=== PATIENT | female | born 1960 | race Caucasian/White ===

== ENCOUNTER 2016-11-11 13:18 | Outpatient (CLI) ==
[2016-06-29 19:08] VITALS: BMI 32.5
[2016-11-11 13:24] VITALS: BMI 32.5
--- NOTE | 2016-11-11 13:44 | DI ---
EXAM: Two-view chest HISTORY: Residual foreign body in the soft tissue. TECHNIQUE: Frontal and lateral views of the chest were obtained. Comparison to one-view chest dated 02/06/2014. FINDINGS: The heart is normal size. Lungs are clear. The pulmonary vasculature appears normal. T he osseous are normal. Small surgical clips are seen projected over the left breast. IMPRESSION: No active cardiopulmonary disease.
== END 2016-11-11 13:19 | disposition home or self-care (01) ==
LOC: RAD 13:18
PROVIDERS: ATTEND General Practice
DX: M79.5 Residual foreign body in soft tissue (principal)

== ENCOUNTER 2016-12-04 13:11 | Outpatient (CLI) | payer OTHER ==
[2016-06-29 19:08] VITALS: BMI 32.5
--- NOTE | 2016-12-04 16:52 | MRI ---
EXAM: Brain MRI without contrast. HISTORY: Dizziness and giddiness. 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 Patient has had a seizure and two mini strokes 3 years ago. COMPARISON: Head CT 02/06/2014. TECHNIQUE: Multiplanar, multisequence MR images were acquired of the brain without contrast. FINDINGS: The midline structures are central and the craniocervical junction is unremarkable. The ventricles and sulci are generally normal in size and configuration. However, the sulci in both occ ipital lobes are mildly effaced without signal abnormality. This probably represents normal variati on. There are no abnormal extra-axial fluid collections. Contrast was not administered. There are small 1 cm, 7 mm and 4 mm FLAIR hyperintensities in the cortex of the posterior superior right frontal lobe and anterior superior right parietal lobe. These have no corresponding T2 signal abnormalities and may represent artifact or small chronic cortical infarcts. There are also two fa int sub-centimeter FLAIR hyperintensities in the anterior superior left frontal cortex without abnor mal hyperintense T2 signal that may represent artifact or small chronic cortical infarcts (axial brendan ges #17,18). These findings are below the threshold resolution of this MRI. Small T2 hyperintensiti es are present in the supratentorial white matter and there is a rim of periventricular T2 hyperinte nsity compatible with mild to moderate supratentorial leukomalacia. There are no abnormal foci of d ark gradient echo signal. The corpus callosum is unremarkable. The sella is expanded and the pitui tary gland is small and flattened inferiorly compatible with a partial empty sella. A right ocular prosthesis is present. The left globe is unremarkable. Mild rightward nasal septal deviation is present with a small right nasal septal spur. There is mild adenoidal hypertrophy with small nasopharyngeal mucosal cysts. A small mucous retention cyst is present in the sphenoid sinus. There is under pneumatization of the mastoid air cells bilaterally, more so on the left and there is mucosal thickening in a mild number of the right mastoid air cells and a moderate number of the l eft with thickened sclerotic mastoid septa bilaterally. These findings are compatible with sequela of chronic bilateral mastoid disease. Flow voids are present in the major intracranial arteries and dural venous sinuses. IMPRESSION: 1. No intracranial hemorrhage or acute cerebral infarct. 2. Mild to moderate chronic ischemic small vessel disease. 3. Partial empty sella.
== END 2016-12-04 13:12 | disposition home or self-care (01) ==
LOC: RAD 13:11
PROVIDERS: ATTEND General Practice
DX: R42 Dizziness and giddiness (principal); R56.9 Unspecified convulsions

== ENCOUNTER 2016-12-05 13:34 | Outpatient (CLI) | payer OTHER ==
[2016-06-29 19:08] VITALS: BMI 32.5
== END 2016-12-05 13:35 | disposition home or self-care (01) ==
LOC: CAR 13:34
PROVIDERS: ATTEND General Practice
DX: R42 Dizziness and giddiness (principal)

== ENCOUNTER → 2016-12-16 | Outpatient (POV) ==
[2016-06-29 19:08] VITALS: BMI 32.5
--- NOTE | 2017-01-20 09:54 | CARDEVENT ---
SUMMARY OF EVENTS Date of Transmission Diary of Events 12/15/16 12:31 P.M. BASELINE RECORDING INTERPRETATIONS: 1. SINUS RHYTHM, RATE 90 BPM, VARIATION IN VOLTAGE, COULD BE ARTIFACTUAL MTDD
== END ==
LOC: OUTPT 00:01
PROVIDERS: ATTEND Otolaryngology
DX: R42 Dizziness and giddiness (principal)
CPT/HCPCS: 92557; 92567

== ENCOUNTER 2016-12-30 06:57 | Day surgery (SDC) ==
[2016-06-29 19:08] VITALS: BMI 32.5
[2016-12-30] MEDS ORDERED: DIPRIVAN 20 ML VIAL IVP ONE (08:35)
[2016-12-30 09:47] VITALS: BP 116/68; TEMP 98
--- NOTE | 2016-12-31 08:59 | OP ---
INDICATIONS FOR PROCEDURE: 56-year-old female presents for her first screening colonoscopy exam. She does have a family history of colon polyps. MEDICATIONS: SEE ANESTHESIA NOTES. PROCEDURE: SCREENING COLONOSCOPY, SNARE POLYPECTOMY. REPORT: The risks, benefits, alternatives and limitations were discussed in detail with the patient. Informed consent was obtained. After adequate sedation was achieved, a digital rectal exam revealed good tone, no masses. The colonoscope was introduced into the rectum and advanced under direct visual guidance to the cecum. The cecum was identified by the appendiceal orifice and IC valve. I then slowly withdrew the scope in a circumferential manner examining the mucosa quite carefully. I looked on the proximal and distal side of folds and flexures as best as possible. I was able to retroflex the scope in the right colon and left colon to increase visualization. The colonic mucosa is unremarkable all the way down to the distal transverse colon. There was a semi-raised 6 mm polyp that I removed by snare technique. There were multiple small mouth diverticula scattered throughout the sigmoid colon. In the distal sigmoid there was a diminutive 4 mm polyp that I destroyed using a snare. No other abnormalities were noted including on retroflex view of the anal canal. The prep was adequate. The withdrawal time was 7 minutes and 30 seconds. The patient tolerated the procedure well with stable vital signs and pulse oximetry throughout. IMPRESSION: 1. TWO (2) POLYPS REMOVED ABOVE 2. DIVERTICULOSIS RECOMMENDATIONS: 1. High fiber diet. 2. Office visit as needed. 3. Colonoscopy examination again in 5 years, sooner if signs or symptoms would indicate otherwise. CC: DR. CAROLA CORNELL
== END 2016-12-30 10:10 | disposition home or self-care (01) ==
LOC: SURG 06:57
PROVIDERS: ATTEND Internal Medicine Gastroenterology
DX: Z12.11 Encounter for screening for malignant neoplasm of colon (principal); D12.3 Benign neoplasm of transverse colon; K57.30 Diverticulosis of large intestine without perforation or abscess without bleeding; Z83.71 Family history of colonic polyps

== ENCOUNTER 2017-01-09 08:58 | Outpatient (CLI) | payer OTHER ==
[2016-06-29 19:08] VITALS: BMI 32.5
--- NOTE | 2017-01-09 09:41 | MAMMO ---
EXAM: Bilateral digital diagnostic mammogram History: Follow-up left breast cancer. Comparison: Bilateral mammogram 06/03/2016 Findings: MLO and CC views of bilateral breasts demonstrate scattered fibroglandular breast parench yma. Interval postsurgical changes of the left breast. Stable benign bilateral breast calcification s. No dominant masses and no suspicious microcalcifications. Impression: Postsurgical changes of the left breast. Recommend 12-month follow-up mammogram to doc ument stability. BIRADS 3
--- NOTE | 2017-01-09 09:51 | DI ---
EXAM: Three views of the left shoulder. History: Left shoulder pain. Comparison: Left shoulder radiograph 02/14/2014 Findings: No acute fracture or dislocation. Surgical clips seen within the left axilla. Calcified granulomas seen within the right lower lobe. Mild narrowing of the left AC joint similar to the pr ior study. The glenohumeral joint is intact. Impression: No acute osseous abnormality. Stable mild arthritis of the acromioclavicular joint.
== END 2017-01-09 08:59 | disposition home or self-care (01) ==
LOC: RAD 08:58
DX: M25.512 Pain in left shoulder (principal); Z85.3 Personal history of malignant neoplasm of breast

== ENCOUNTER 2017-01-26 13:00 | Outpatient (RCR) ==
[2016-06-29 19:08] VITALS: BMI 32.5
--- NOTE | 2017-01-15 15:56 | RS.OPPTEV2 ---
Date of Note: 01/15/17 Visit #: 1 Date of Evaluation: 01/15/17 Payer Source: Medicaid Date of Onset/Injury/Change in Status: 06/27/17 Surgery Performed?: Yes (Lumpectomy with lymph node removal as well.) Treatment Diagnosis: Left shoulder weakness and ROM limitation. History of Condition/Mechanism of Injury:: Patient reports she had breast Ca and had a lumpectomy June 27, 2016. She also had lymph nodes taken but pt thinks is was only a few. She states she has been having difficulty using the left arm since her surgery. She is working with it at home but it is slow progress. She had 22 radiation treatments that ended the last of August. She did not have to have chemotherapy. Prior Level of Function.....Patient was independent with: ADL's, Self Care, Work /Vocation, Caregiving, Ambulation/Mobility, Community Integration/Access Functional Limitations: Sleep, ADL's, Reaching, Pushing, Pulling, Lifting, Carrying, Community Access/Integration (opening doors) Treatment Side (optional): Left Medical History Medical History: Hypertension, CVA/TIA (two weeks ago), COPD, Arthritis, Emphysema, Cancer, Other Medical History Comments:: Seizures Surgical History: Other Surgical History Comments:: Left breast lumpectomy with node removal and retinoblastoma with right eye removed at 19 months old. Right facial reconstruction from retinoblastoma removal. Ongoing procedures as needed. Smoking Status: Current every day smoker Hx Home Medications: Clonidine, Amitriptyline, synthroid, morphine, clonazepam, Cyclobenzaprine, nystatin Pain Assessment - Pain Description Pain Location: Occasional pain in the shoulder with movement at end range Functional Outcome Measure UE Functional Index: 70 - G Codes & Severity Modifier G Codes & Modifier: Carrying, Moving & Handling. Eval - CI. Goal - CH Source of G Code score: UE Functional Index - Left Shoulder ROM Left Shoulder Flexion: 128 Left Shoulder Abduction: 90 Left Shoulder ROM Limitations: Soft Tissue Tightness, Pain Comments: Left pec tightness as well with minimal pain to stretching. - Left Shoulder Strength Left Shoulder Flexion: 3 Fair Left Shoulder Abduction: 3- Fair- Left Shoulder External Rotation: Not Tested Left Shoulder Internal Rotation: Not Tested Sensation - Sensation Left Lower Extremity: Impaired Interventions - Exercise/Activities/Manual Therapy Exercises/Activities: Patient received AAROM all planes of motion of the L shoulder in sitting x 2 sets of 10-15 reps. Left pec stretches also performed by PT passively. Following ex CP was applied X 10 min to the area. Manual Therapy: NA - Charges Total Direct Minutes: 35 Total Treatment Time: 60 Procedures billed for this date of service:: PT Eval (Mod) & exercise Assessment Assessment: Left shoulder adhesive capsullitis with decreased ROM and strength. Pain occurs at end ROM with stretching only. Left pec tightness also. Patient Education: Education of diagnosis, Body/Joint mechanics, Education of Plan of Care Rehab Potential: Good Short Term Goals Goal #1: Left shoulder flexion 160 degrees Goal to be met by: 01/30/17 Goal #2: Left shoulder abduction 145 degrees Goal to be met by: 01/30/17 Goal #3: Patient independent with basic HEP Goal to be met by: 01/30/17 Senior Game Designer Goals Goal #1: Patient independent in advanced HEP. Goal to be met by: 02/06/17 Goal #2: Patient able to perform self care and ADL's using left UE w/o difficulty. Goal to be met by: 02/06/17 Goal #3: Score on UE functional scale improved to 78/80. Goal to be met by: 02/06/17 Goal #4: LUE strength 4+ - 5/5 throughout. Goal to be met by: 02/06/17 Plan - Treatment to be Provided Procedures: Therapeutic Exercises, Therapeutic Activity, Manual Therapy, Patient Education Modalities: Cryotherapy - Treatment Plan Frequency: 3 X week Duration: 4 weeks ORDER # VISITS AND/OR THROUGH DATE: 02/13/2017 - Treatment Code (1) Decreased ROM of left shoulder Comments: M25.612 (2) Muscle weakness (generalized) Comments: M62.81
--- NOTE | 2017-01-20 13:59 | RS.CXNS ---
Date of scheduled appointment: 01/20/17 Type: Cancel Reason for Cancel/NS: No mentioned reason
--- NOTE | 2017-01-22 13:30 | RS.CXNS ---
Date of scheduled appointment: 01/22/17 Type: Cancel
--- NOTE | 2017-01-23 16:13 | RS.OPPTDN ---
Subjective Date of Note: 01/23/17 Visit #: 2 Date of Evaluation: 01/15/17 Payer Source: Medicaid Treatment Diagnosis: Left shoulder weakness and ROM limitation. Current Subjective/complaints:: Patient states that the ice seemed to make her arm worse. Reports that her arm is stiff and sore at the L axilla and side of her breast. She says she is trying to work her arm at home, but she has "babied " it for some time and it has been difficult for her. Pain Assessment - Pain Description Pain Location: Occasional pain in the shoulder with movement at end range Pain Description: constant Current Pain Intensity: 4/10 Interventions - Exercise/Activities/Manual Therapy Exercises/Activities: Patient received PROM/AAROM all directions of the L shoulder. She began manual isometrics for FLEX/EXT/IR/ER. AAROM for the elbow and manual isometrics for biceps/triceps. Sitting: shoulder retraction and shoulder shrugs. Total minutes of Exercise: 32 Manual Therapy: NA - Charges Total Direct Minutes: 32 Total Treatment Time: 32 Procedures billed for this date of service:: ex2 Assessment: Patient mariposa PROM to WFL for flexion and abd. ER/IR limited by pain. Patient denied needing cryotherapy following exercise. She was encouraged to continue stretching pectoralis at home and use ice over the weekend to help with pain and tightness. Patient Education: Education of diagnosis, Body/Joint mechanics, Home Exercise Program, Home Safety, Activity Modification, Education of Plan of Care Patient demonstrates compliance with HEP?: Yes (somewhat) Short Term Goals Goal #1: Left shoulder flexion 160 degrees Goal to be met by: 01/30/17 Progress towards Goal:: Progressing Goal #2: Left shoulder abduction 145 degrees Goal to be met by: 01/30/17 Progress towards Goal:: Progressing Goal #3: Patient independent with basic HEP Goal to be met by: 01/30/17 [facility] Goals Goal #1: Patient independent in advanced HEP. Goal to be met by: 02/06/17 Goal #2: Patient able to perform self care and ADL's using left UE w/o difficulty. Goal to be met by: 02/06/17 Goal #3: Score on UE functional scale improved to 78/80. Goal to be met by: 02/06/17 Goal #4: LUE strength 4+ - 5/5 throughout. Goal to be met by: 02/06/17 Plan PLAN OF CARE EXPIRES ON:: 02/13/17 ORDER # VISITS AND/OR THROUGH DATE: 02/13/2017 PLAN: Progress Exercises
--- NOTE | 2017-01-26 14:02 | RS.OPPTDN ---
Subjective Date of Note: 01/26/17 Visit #: 3 Date of Evaluation: 01/15/17 Payer Source: Medicaid Treatment Diagnosis: Left shoulder weakness and ROM limitation. Current Subjective/complaints:: Patient says she thinks she has more motion. She says that she is weaning down her morphine. She says she still hurts, but seems to be mariposa exercise better. Describes, "good-hurt." Pain Assessment - Pain Description Pain Location: Occasional pain in the shoulder with movement at end range Pain Description: constant Current Pain Intensity: 4/10 Interventions - Exercise/Activities/Manual Therapy Exercises/Activities: Patient received PROM/AAROM all directions of the L shoulder. She continued with manual isometrics for FLEX/EXT/IR/ER. AAROM for the elbow and manual isometrics for biceps/triceps. 1# wand for bilateral shoulder flexion 2x5 and press ups x 10. Sitting: shoulder retraction and shoulder shrugs. Added shoulder pulleys. Total minutes of Exercise: 38 Manual Therapy: NA - Charges Total Direct Minutes: 38 Total Treatment Time: 38 Procedures billed for this date of service:: ex3 Assessment: Patient mariposa increased exercise especially flexion. ABD more difficult and more limited than flexion, but is improving. Pain is less today following treatment. Patient Education: Education of diagnosis, Body/Joint mechanics, Home Exercise Program, Home Safety, Activity Modification, Education of Plan of Care Patient demonstrates compliance with HEP?: Yes Short Term Goals Goal #1: Left shoulder flexion 160 degrees Goal to be met by: 01/30/17 Progress towards Goal:: Progressing Goal #2: Left shoulder abduction 145 degrees Goal to be met by: 01/30/17 Progress towards Goal:: Progressing Goal #3: Patient independent with basic HEP Goal to be met by: 01/30/17 Progress towards Goal:: Progressing Pitch Flaker Goals Goal #1: Patient independent in advanced HEP. Goal to be met by: 02/06/17 Goal #2: Patient able to perform self care and ADL's using left UE w/o difficulty. Goal to be met by: 02/06/17 Goal #3: Score on UE functional scale improved to 78/80. Goal to be met by: 02/06/17 Goal #4: LUE strength 4+ - 5/5 throughout. Goal to be met by: 02/06/17 Plan PLAN OF CARE EXPIRES ON:: 02/13/17 ORDER # VISITS AND/OR THROUGH DATE: 02/13/2017 PLAN: Progress Exercises
--- NOTE | 2017-01-28 15:09 | RS.CXNS ---
Date of scheduled appointment: 01/28/17 Type: No Show
--- NOTE | 2017-01-30 13:49 | RS.CXNS ---
Date of scheduled appointment: 01/30/17 Type: No Show
--- NOTE | 2017-02-27 10:30 | RS.QUICKDC ---
Discharge from PT Date of Discharge: 02/27/17 Number of Visits: 3 Reason for Discharge: Patient attended 3 sessions including eval and no showed/ cancelled 4 sessions with LDOS being 01/26/17. Patient had felt she was gaining mobility to the L shoulder. She reported self weaning from morphine due to progress. L UE ROM passively was ~WFL and sore with end ranges. D/c due to lack of POC completion. For specific information, see daily notes. Gcodes: Carry D/c: CI. Carry Goal: CH. UE Functional Scale revealled score: 70 or 12% impairment
== END 2017-02-06 ==
PROVIDERS: ATTEND Internal Medicine Hematology & Oncology
DX: M25.512 Pain in left shoulder (principal)

== ENCOUNTER 2017-04-24 14:00 | Outpatient (CLI) | payer OTHER ==
--- NOTE | 2017-04-24 14:53 | US ---
EXAM: Right lower extremity venous Doppler HISTORY: Concern for DVT with right lower extremity pain and history of breast cancer on tamoxifen therapy. COMPARISON: None TECHNIQUE: Sonographic and Doppler evaluation of the right lower extremity vessels from the common femoral through the anterior tibial veins were obtained. Augmentation and compression techniques we re also performed. FINDINGS: There is spontaneous Doppler flow seen in the right lower extremity veins from the common femoral through the anterior tibial veins. There is normal compression and augmentation throughout the lower extremity veins. There is no visualized reflux. Sonographic appearance of the soft tiss ues are unremarkable. IMPRESSION: No right lower extremity thrombus
--- NOTE | 2017-04-24 14:55 | DI ---
EXAM: Radiographs, right tibia and fibula HISTORY: Right lower leg pain. COMPARISON: None available. TECHNIQUE: Two views. FINDINGS: Bone mineralization is decreased. There is no fracture or dislocation. Mild osteoarthri tis of the knee noted. No focal soft tissue abnormality is seen. IMPRESSION: No fracture or dislocation.
== END 2017-04-24 14:01 | disposition home or self-care (01) ==
LOC: RAD 14:00
PROVIDERS: ATTEND General Practice
DX: M79.661 Pain in right lower leg (principal)

== ENCOUNTER 2017-08-20 13:37 | Emergency (ER) | payer OTHER ==
[2017-08-20 14:18] VITALS: BP 136/85; TEMP 98; BMI 33.6
--- NOTE | 2017-08-20 14:22 | ED.PDOC ---
General ED Provider: Dr. DWAYNE WANG Chief Complaint: Knee Pain/Injury Stated Complaint: Fell on right knee 2 weeks ago. Knee still hurting. PCP out of town. Time Seen by Physician: 14:21 Mode of Arrival: Walk-In Information Source: Patient Exam Limitations: No limitations [facility] T[facility] Documentation Reviewed and Agree: Yes Trauma/Injury Complaint Exam - Trauma Complaint/Exam Location of Pain or Injury: Reports: RLE (right knee) Mechanism of Injury: Reports: Fall (slipped on water) Onset/Duration: 2 weeks Symptoms Are: Still present Timing of Treatment: Immediate Past Medical History - Past Medical History Endocrine: Reports: Unknown Cardiovascular: Reports: Unknown Respiratory: Reports: Unknown Hematological: Reports: Unknown Gastrointestinal: Reports: Unknown Genitourinary: Reports: Unknown Neuro/Psych: Reports: Unknown Musculoskeletal: Reports: Unknown Cancer: Reports: Unknown Last Menstrual Period: none - Surgical History General Surgical History: Reports: Unknown - Family History Family History: Reports: Unknown - Social History Smoking Status: Current every day smoker, Light tobacco smoker Hx Substance Use: No Alcohol Screening: None Course - Course Vital Signs: Temp Pulse Resp BP Pulse Ox 08/20/17 13:38 98.0 F 109 H 18 136/85 96 Departure - Departure Allergies/Adverse Reactions: Allergies codeine Adverse Reaction (Verified 08/20/17 13:41) Iodinated Contrast- Oral and IV Dye Adverse Reaction (Verified 08/20/17 13:41) CHLORAPREP Adverse Reaction (Uncoded 11/21/16 10:35) Home Medications: Ambulatory Orders Levothyroxine Sodium [Synthroid] 50 mcg PO QDAC 06/22/13 Gabapentin 300 mg PO BID 06/01/16 Aspirin [Aspir 81] 81 mg PO DAILY 10/08/16 Keppra 500 mg PO BID 10/08/16 Venlafaxine HCl [Effexor Xr] 75 mg PO DAILY 02/25/17 Promethazine HCl 25 mg PO PRN PRN tab-cap 04/24/17 Anastrozole [Arimidex] 1 mg PO DAILY 08/20/17
== END 2017-08-20 14:29 | disposition left against medical advice (07) ==
LOC: ED 13:37
DX: M25.561 Pain in right knee (principal); W19.XXXA Unspecified fall, initial encounter
CPT/HCPCS: 99282

== ENCOUNTER 2017-08-24 15:54 | Outpatient (CLI) ==
--- NOTE | 2017-08-24 16:39 | DI ---
EXAM: Four views of the right knee. History: Right knee pain. Findings: No acute fracture or dislocation. Mild to moderate tricompartmental joint space narrowing with subchondral sclerosis and osteophyte formation. Joint effusion is present. Impression: 1. No acute osseous abnormality. 2. Mild to moderate osteoarthritis. 3. Joint effusion
== END 2017-08-24 15:55 | disposition home or self-care (01) ==
LOC: RAD 15:54
PROVIDERS: ATTEND General Practice
DX: M25.561 Pain in right knee (principal)

== ENCOUNTER 2018-04-13 19:22 | Emergency (ER) ==
[2018-04-13 19:33] VITALS: BMI 38.5
--- NOTE | 2018-04-13 19:46 | ED.PDOC ---
General ED Provider: Dr. JEFFREY KELLEY Chief Complaint: Hypertension Stated Complaint: Came for the bilateral ear pains, she is been hurting for 2 days, seen PMD was started her on Bactrim ds, today she checked the Bp IT WAS HIGH,. having some headache Time Seen by Physician: 19:45 Mode of Arrival: Walk-In Information Source: Patient Primary Care [facility] Nursing and Triage Documentation Reviewed and Agree: Yes Reviewed sepsis parameters & appropriate labs ordered?: Yes System Inflammatory Response Syndrome: Temp 101F or Greater, Pulse >90 BPM Sepsis Protocol: For patient's 13 years and over: Temp is 96.8 and below OR 101 and greater Pulse >90 BPM Resp >20/minute Acutely Altered Mental Status Are patient's symptoms suggestive of a new infection, such as: -Pneumonia -Skin, Soft Tissue -Endocarditis -UTI -Bone, Joint Infection -Implantable Device -Acute Abdominal Infection -Wound Infection -Meningitis -Blood Stream Catheter Infection -Unknown Review of Systems - Review Of Systems Constitutional: Reports: Fever, Malaise, Weakness Eyes: Reports: No symptoms Ears, Nose, Mouth, Throat: Reports: Ear pain Respiratory: Reports: No symptoms Cardiac: Reports: No symptoms GI: Reports: No symptoms : Reports: No symptoms Musculoskeletal: Reports: No symptoms Skin: Reports: No symptoms Neurological: Reports: Headache Endocrine: Reports: No symptoms Hematologic/Lymphatic: Reports: No symptoms All Other Systems: Reviewed and Negative Past Medical History - Past Medical History Previously Healthy: Yes Endocrine: Reports: Dyslipidemia Cardiovascular: Reports: Hypertension Respiratory: Reports: None Hematological: Reports: None Gastrointestinal: Reports: None Genitourinary: Reports: None Neuro/Psych: Reports: TIA, Seizure, Depression Musculoskeletal: Reports: None Cancer: Reports: None Last Menstrual Period: na - Surgical History General Surgical History: Reports: Cholecystectomy, Tonsillectomy - Family History Family History: Reports: Unknown - Social History Smoking Status: Former smoker Hx Substance Use: No Alcohol Screening: None - Immunizations Tetanus Shot up to Date: Yes Physical Exam - Physical Exam Appearance: Ill-appearing, Obese Eyes: ANDRES, EOMI, Conjunctiva clear ENT: TMs Occluded, Erythema Respiratory: Airway patent, Breath sounds clear, Breath sounds equal, Respirations nonlabored Cardiovascular: RRR, Pulses normal, No rub, No murmur GI/: Soft, Nontender, No masses, Bowel sounds normal, No Organomegaly Musculoskeletal: Normal strength, ROM intact, No edema, No calf tenderness Skin: Warm, Dry, Normal color Neurological: Sensation intact, Motor intact, Reflexes intact, Cranial nerves intact, Alert, Oriented Psychiatric: Affect appropriate, Mood appropriate Interpretation - Radiology Interpretation Radiology Interpretation By: Radiologist Radiology Results: Negative Re-Evaluation - Re-Evaluation Time of Re-Evaluation: 22:13 Status: Improved Critical Care Note - Critical Care Note Total Time (mins): 30 Course - Course Hematology/Chemistry: 04/13/18 19:58 04/13/18 19:58 Orders, Labs, Meds: Lab Review 04/13/18 04/13/18 04/13/18 19:58 19:58 19:58 WBC 7.16 RBC 4.97 Hgb 13.8 Hct 41.5 MCV 83.5 MCH 27.8 MCHC 33.3 RDW Coeff of Javi 13.4 Plt Count 163 Immature Gran % (Auto) 0.6 Neut % (Auto) 79.7 Lymph % (Auto) 9.8 L [place] % (Auto) 6.4 Eos % (Auto) 2.9 Baso % (Auto) 0.6 Immature Gran # (Auto) 0.0 Neut # (Auto) 5.7 Lymph # (Auto) 0.7 [place] # (Auto) 0.5 Eos # (Auto) 0.2 Baso # (Auto) 0.0 Sodium Potassium Chloride Carbon Dioxide Anion Gap BUN Creatinine Estimated GFR (MDRD) BUN/Creatinine Ratio Glucose Lactic Acid 8.9 Calcium Total Bilirubin AST ALT Alkaline Phosphatase Total Creatine Kinase Troponin I Total Protein Albumin Globulin Albumin/Globulin Ratio Procalcitonin < 0.05 04/13/18 19:58 WBC RBC Hgb Hct MCV MCH MCHC RDW Coeff of Javi Plt Count Immature Gran % (Auto) Neut % (Auto) Lymph % (Auto) [place] % (Auto) Eos % (Auto) Baso % (Auto) Immature Gran # (Auto) Neut # (Auto) Lymph # (Auto) [place] # (Auto) Eos # (Auto) Baso # (Auto) Sodium 136 Potassium 3.6 Chloride 101 Carbon Dioxide 24 Anion Gap 14.6 BUN 7 Creatinine 1.02 Estimated GFR (MDRD) 56.00 BUN/Creatinine Ratio 6.86 Glucose 90 Lactic Acid Calcium 9.5 Total Bilirubin 0.3 AST 14 L ALT 11 L Alkaline Phosphatase 120 H Total Creatine Kinase 62 Troponin I < 0.0100 Total Protein 7.4 Albumin 3.3 L Globulin 4.1 Albumin/Globulin Ratio 0.80 Procalcitonin Orders Category Date Time Status EKG-(ED ONLY) Stat CARDIO 04/13/18 19:50 Completed BLOOD CULTURE Stat LAB 04/13/18 19:58 Received CBC W/ AUTO DIFF Stat LAB 04/13/18 19:58 Completed COMPREHENSIVE METABOLIC PANEL Stat LAB 04/13/18 19:58 Completed CREATINE KINASE Stat LAB 04/13/18 19:58 Completed LACTIC ACID Stat LAB 04/13/18 19:58 Completed PROCALCITONIN Stat LAB 04/13/18 19:58 Completed TROPONIN I Stat LAB 04/13/18 19:58 Completed Acetaminophen [Tylenol] MEDS 04/13/18 20:36 Discontinued 650 mg PO ONCE STA Ceftriaxone Sodium [Rocephin] MEDS 04/13/18 20:37 Discontinued 1 gm .ROUTE .STK-MED ONE Ceftriaxone Sodium [Rocephin] 1 gm MEDS 04/13/18 20:35 Discontinued 0.9 % Sodium Chloride [Sodium Chloride] 50 ml IV ONCE Clonidine HCl [Catapres] MEDS 04/13/18 20:34 Discontinued 0.2 mg PO ONCE STA CHEST, 2 VIEWS PA & LAT Stat RADS 04/13/18 19:[address] HEAD W/O CONTRAST Stat RADS 04/13/18 19:50 Completed Medications Discontinued Medications Generic Name Dose Route Start Last Admin Trade Name Freq PRN Reason Stop Dose Admin Acetaminophen 650 mg 04/13/18 20:36 04/13/18 20:48 Tylenol PO 04/13/18 20:37 650 mg ONCE STA Administration Clonidine 0.2 mg 04/13/18 20:34 04/13/18 20:47 Catapres PO 04/13/18 20:35 0.2 mg ONCE STA Administration Ceftriaxone Sodium 1 gm/ 50 mls @ 75 mls/hr 04/13/18 20:35 04/13/18 20:52 Sodium Chloride IV 04/13/18 21:14 Not Given ONCE STA Vital Signs: Temp Pulse Resp BP Pulse Ox 04/13/18 21:41 80 18 91/68 96 04/13/18 21:15 86 24 120/75 96 04/13/18 19:23 101.1 F H 97 H 16 189/123 H 95 NIKKI Risk Score NIKKI Risk Score: Risk Score Odds of by 30D 0 0.1 (0.1-0.2) 1 0.3 (0.2-0.3) 2 0.4 (0.3-0.5) 3 0.7 (0.6-0.9) 4 1.2 (1.0-1.5) 5 2.2 (1.9-2.6) 6 3.0 (2.5-3.6) 7 4.8 (3.8-6.1) Departure - Departure Time of Disposition: 22:45 Disposition: HOME SELF-CARE Discharge Problem: Hypertension, uncontrolled Otitis media Qualifiers: Otitis media type: serous Chronicity: acute Laterality: bilateral Recurrence: not specified as recurrent Qualified Code(s): H65.03 - Acute serous otitis media , bilateral Instructions: Serous Otitis Media (ED) Condition: Stable Pt referred to PMD for follow-up: Yes IPMP verified?: No Additional Instructions: Continue Taking bactrim, was given by PMD Tylenol prn Increase Hydration f/u with PMD keep checking the BP Allergies/Adverse Reactions: Allergies codeine Adverse Reaction (Verified 04/13/18 20:08) Iodinated Contrast- Oral and IV Dye Adverse Reaction (Verified 04/13/18 20:08) CHLORAPREP Adverse Reaction (Uncoded 11/21/16 10:35) Home Medications: Ambulatory Orders Levothyroxine Sodium [Synthroid] 50 mcg PO QDAC 06/22/13 Gabapentin 300 mg PO BID 06/01/16 Aspirin [Aspir 81] 81 mg PO DAILY 10/08/16 Keppra 500 mg PO BID 10/08/16 Venlafaxine HCl [Effexor Xr] 75 mg PO DAILYWM 02/25/17 Promethazine HCl 12.5 mg PO PRN PRN tab-cap 04/24/17 Letrozole [Femara] 2.5 mg PO DAILY 04/13/18 Magnesium Aspartate HCl [Maginex] 61 mg PO DAILY 04/13/18 Ubidecarenone [Coenzyme Q10] 100 mg PO DAILY 04/13/18 Disposition Discussed With: Patient
[2018-04-13] MEDS ORDERED: CATAPRES PO STA (20:34)
[2018-04-13] MEDS ORDERED: ROCEPHIN 1 GM in SODIUM CHLORIDE 50 ML IV STA (20:35)
[2018-04-13] MEDS ORDERED: TYLENOL PO STA (20:36)
--- NOTE | 2018-04-13 20:36 | CT ---
EXAM: CT head without contrast 04/13/2018 HISTORY: Dizziness COMPARISON: 02/06/2014 FINDINGS: There is no evidence of intracranial hemorrhage. The midline is maintained. There is no h ydrocephalus. Generalized atrophy and chronic small vessel ischemic changes. No cerebellar tonsilla r ectopia. Evaluation of the calvarium shows no fracture. Bilateral mastoid effusions. These appea r chronic. IMPRESSION: No acute intracranial abnormality. Chronic findings as above.
[2018-04-13] MEDS ORDERED: ROCEPHIN ONE (20:37)
[2018-04-13] MEDS ORDERED: SODIUM CHLORIDE 50 ML IV ONE (20:52)
[2018-04-13 23:48] VITALS: BP 109/64; TEMP 98.6
--- NOTE | 2018-04-14 07:28 | DI ---
EXAM: CHEST FRONTAL AND LATERAL VIEWS HISTORY: Fever. COMPARISON: 11/11/2016 FINDINGS: Heart size and mediastinal contour remain within normal limits. There is diffuse, chroni c appearing interstitial accentuation. Mild hyperinflation. No acute infiltrates are seen. No vascu lar congestion. There is no consolidation, visible pleural fluid or pneumothorax. Bones reveal no ac robinson fracture. IMPRESSION: No acute cardiopulmonary process.
== END 2018-04-13 23:50 | disposition home or self-care (01) ==
LOC: ED 19:22
DX: I16.0 Hypertensive urgency (principal); H65.03 Acute serous otitis media, bilateral; R51 Headache; R53.1 Weakness; E78.5 Hyperlipidemia, unspecified; Z86.73 Personal history of transient ischemic attack (TIA), and cerebral infarction without residual deficits; Z79.899 Other long term (current) drug therapy
CPT/HCPCS: 36415; 80053; 82550; 83605; 84145; 84484; 85025; 87040; 93005; 93010; 96365; 99283

== ENCOUNTER 2018-12-19 13:14 | Emergency (ER) | payer OTHER ==
[2018-12-19 13:28] VITALS: BP 140/85; TEMP 98.8; BMI 35.9
--- NOTE | 2018-12-19 13:54 | ED.PDOC ---
General ED Provider: Dr. NITHYA LYNN Chief Complaint: Extremity Pain/Injury Stated Complaint: Lt arm and shoulder pain. Fell one week ago. Has more pain with movement. Involving lt shoulder. States worried about her heart causing her pain. States family hx heart disease; \\ c/o developing nausea 2 days ago but none now. States, "I want to make sure this arm pain is not heart related". Time Seen by Physician: 13:20 Mode of Arrival: Wheelchair Information Source: Patient Exam Limitations: No limitations [facility] and Triage Documentation Reviewed and Agree: Yes Does patient meet sepsis criteria?: No System Inflammatory Response Syndrome: Not Applicable Sepsis Protocol: For patient's 13 years and over: Temp is 96.8 and below OR 101 and greater Pulse >90 BPM Resp >20/minute Acutely Altered Mental Status Are patient's symptoms suggestive of a new infection, such as: -Pneumonia -Skin, Soft Tissue -Endocarditis -UTI -Bone, Joint Infection -Implantable Device -Acute Abdominal Infection -Wound Infection -Meningitis -Blood Stream Catheter Infection -Unknown Cardiovascular Complaint Exam - Chest Pain Complaint/Exam Onset: Gradual Symptoms Are: Still present Timing: Intermittent Length of Chest Pain Episodes: Having arm and lt shoulder aching Initial Severity: Mild Location: Reports: Other (lt shoulder) Pain Radiates: Reports: Other (none) Character: Reports: Aching Aggravating: Reports: None Alleviating: Reports: Rest Associated Signs and Symptoms: Denies: Diaphoresis, Nausea, Vomiting, Fever, Palpitations, Cough, Hemoptysis, Back pain, Abdominal pain, Dizziness, Short of air, Calf pain, Calf swelling Related Surgical History: Reports: None History of Healthcare-Acquired Pneumonia: Reports: No AMI/ACS Risk Factors: Reports: Family history Prior Care for this Complaint: No Recent Stress Test: No Recent Echo/LV Function: No JVD Present: No Subcutaneous Emphysema Present: No Diminshed Breath Sounds: No Reproducible Chest Wall Pain: No Bilateral Pulses Present: No Unequal Pulses Noted: No Review of Systems - Review Of Systems Constitutional: Reports: No symptoms. 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) Ears, Nose, Mouth, Throat: Reports: No symptoms Respiratory: Reports: No symptoms Cardiac: Reports: No symptoms, Lightheadedness GI: Reports: Nausea : Reports: No symptoms Musculoskeletal: Reports: No symptoms Skin: Reports: No symptoms Neurological: Reports: No symptoms Endocrine: Reports: No symptoms Hematologic/Lymphatic: Reports: No symptoms All Other Systems: Reviewed and Negative Past Medical History - Past Medical History Previously Healthy: Yes Endocrine: Reports: Dyslipidemia Cardiovascular: Reports: Hypertension Respiratory: Reports: None Hematological: Reports: None Gastrointestinal: Reports: None Genitourinary: Reports: None Neuro/Psych: Reports: TIA, Seizure, Depression Musculoskeletal: Reports: None Cancer: Reports: None Last Menstrual Period: menopausal 2013 - Surgical History General Surgical History: Reports: Cholecystectomy, Tonsillectomy - Family History Family History: Reports: Unknown - Social History Smoking Status: Former smoker Hx Substance Use: No Alcohol Screening: None - Immunizations Tetanus Shot up to Date: No (unsure) Physical Exam - Physical Exam Appearance: Well-appearing, No pain distress, Well-nourished Ill-appearing: None Pain Distress: None Eyes: ANDRES, EOMI, Conjunctiva clear ENT: Ears normal, Nose normal, Oropharynx normal Respiratory: Airway patent, Breath sounds clear, Breath sounds equal, Respirations nonlabored Cardiovascular: RRR, Pulses normal, No rub, No murmur GI/: Soft, Nontender, No masses, Bowel sounds normal, No Organomegaly Musculoskeletal: Normal strength, ROM intact, No edema, No calf tenderness Skin: Warm, Dry, Normal color Neurological: Sensation intact, Motor intact, Reflexes intact, Cranial nerves intact, Alert, Oriented Psychiatric: Affect appropriate, Mood appropriate Critical Care Note - Critical Care Note Total Time (mins): 0 Course - Course Hematology/Chemistry: 12/19/18 14:10 12/19/18 14:10 Orders, Labs, Meds: Lab Review 12/19/18 12/19/18 14:10 14:10 WBC 8.87 RBC 5.03 Hgb 13.7 Hct 41.8 MCV 83.1 MCH 27.2 MCHC 32.8 RDW Coeff of Javi 13.2 Plt Count 262 Immature Gran % (Auto) 0.2 Neut % (Auto) 60.9 Lymph % (Auto) 31.5 [place] % (Auto) 4.3 Eos % (Auto) 2.4 Baso % (Auto) 0.7 Immature Gran # (Auto) 0.0 Neut # (Auto) 5.4 Lymph # (Auto) 2.8 [place] # (Auto) 0.4 Eos # (Auto) 0.2 Baso # (Auto) 0.1 Sodium 139.8 Potassium 3.49 L Chloride 100.4 Carbon Dioxide 31.3 H Anion Gap 11.59 BUN 9.8 Creatinine 1.00 Estimated GFR (MDRD) 57.00 BUN/Creatinine Ratio 9.80 Glucose 117.7 H Calcium 9.96 Total Bilirubin 0.31 AST 14.5 ALT 11.8 Alkaline Phosphatase 120.1 Troponin I < 0.012 Total Protein 7.85 Albumin 4.02 Globulin 3.83 Albumin/Globulin Ratio 1.04 Orders Category Date Time Status EKG-(ED ONLY) Stat CARDIO 12/19/18 13:47 Completed CBC W/ AUTO DIFF Stat LAB 12/19/18 14:10 Completed CMP [COMPREHENSIVE METABOLIC PANEL] Stat LAB 12/19/18 14:10 Completed TROPONIN I Stat LAB 12/19/18 14:10 Completed CHEST, 2 VIEWS PA & LAT Stat RADS 12/19/18 13:47 Completed SHOULDER, LEFT MIN 2V Stat RADS 12/19/18 13:52 Completed Vital Signs: Temp Pulse Resp BP Pulse Ox 12/19/18 13:15 98.8 F 96 H 20 140/85 95 NIKKI Risk Score NIKKI Risk Score: Risk Score Odds of by 30D 0 0.1 (0.1-0.2) 1 0.3 (0.2-0.3) 2 0.4 (0.3-0.5) 3 0.7 (0.6-0.9) 4 1.2 (1.0-1.5) 5 2.2 (1.9-2.6) 6 3.0 (2.5-3.6) 7 4.8 (3.8-6.1) Departure - Departure Time of Disposition: 15:15 Disposition: HOME SELF-CARE Discharge Problem: Left shoulder strain, Nausea, Back pain, Neck strain Instructions: Cervical Strain (ED), Muscle Strain (ED) Condition: Good Pt referred to PMD for follow-up: Yes (1 wk) IPMP verified?: No Additional Instructions: May take analgesics for pain and needed Return if symptoms worsen Allergies/Adverse Reactions: Allergies codeine Adverse Reaction (Verified 04/13/18 20:08) Iodinated Contrast- Oral and IV Dye Adverse Reaction (Verified 04/13/18 20:08) morphine Adverse Reaction (Verified 12/19/18 13:22) Difficulty Breathing CHLORAPREP Adverse Reaction (Uncoded 11/21/16 10:35) Home Medications: Ambulatory Orders Levothyroxine Sodium [Synthroid] 50 mcg PO QDAC 06/22/13 Gabapentin 300 mg PO BID 06/01/16 Aspirin [Aspir 81] 81 mg PO DAILY 10/08/16 Keppra 500 mg PO BID 10/08/16 Letrozole [Femara] 2.5 mg PO DAILY 04/13/18 Magnesium Aspartate HCl [Maginex] 61 mg PO DAILY 04/13/18 Ubidecarenone [Coenzyme Q10] 100 mg PO DAILY 04/13/18 Venlafaxine HCl [Effexor Xr] 75 mg PO DAILY 11/26/18 Metoprolol Tartrate 25 mg PO BID 12/19/18 Promethazine HCl [Phenergan Tab] 12.5 mg PO Q8H 12/19/18 Disposition Discussed With: Patient, Family Musculoskeletal Complaint Exam - Shoulder Pain Complaint/Exam Mechanism of Injury: Reports: Trauma Onset/Duration: 1 wk Symptoms Are: Still present Timing: Intermittent Initial Severity: Moderate Current Severity: Mild Location: Reports: Discrete Character: Reports: Aching Alleviating: Reports: Rest Aggravating: Reports: Movement, Extension Associated Signs and Symptoms: Denies: Swelling, Redness, Bruising, Fever, Weakness, Numbness, Tingling Related History: Denies: Similar episode Non-Orthopedic Risk Factors: Reports: None DVT Risk Factors: Reports: None Septic Arthritis Risk Factors: Reports: None Related Surgical History: Reports: None Shoulder Findings: Absent: Swelling Tenderness: Present: Proximal humerus Limited Range of Motion: Present: Abduction, Extension, Internal rotation Differential Diagnoses: Strain - Neck Pain Complaint/Exam Mechanism of Injury: Reports: No known trauma Symptoms Are: Resolved Timing: Intermittent Initial Severity: Mild Current Severity: None Location: Reports: Discrete Character: Reports: Aching Aggravating: Reports: Movement Alleviating: Reports: Position Associated Signs and Symptoms: Denies: Swelling, Redness, Bruising, Fever, Nuchal rigidity, Weakness, Headache, Paresthesia Related History: Denies: Similar episode Meningitis Risk Factors: Reports: None Cervical Spine Injury Risk Factors: Reports: None Related Surgical History: Reports: None Carotid Bruit Present: No Pain on Passive Flexion: No Positive Kernig's Sign: No ROM Limited In: Absent: Flexion, Extension, Right, Left, Side bending, Rotation Tenderness: Absent: Midline, Paraspinal Radiates to: Absent: Right arm, Left arm Focal Weakness: Present: None Focal Sensory Loss: Reports: None Nexus Low Risk Criteria: No post-midline CS tender Differential Diagnoses: Strain - Back Pain Complaint/Exam Mechanism of Injury: Reports: Trauma Onset/Duration: c/o left upper arm pain. More pain with movement. Fell one week ago. c/o na Timing: Intermittent Initial Severity: Mild Current Severity: Mild Location: Reports: Discrete Character: Reports: Aching Aggravating: Reports: Movements Alleviating: Reports: Rest Associated Signs and Symptoms: Denies: Swelling, Redness, Bruising, Fever, Weakness, Numbness, Tingling, Abdominal pain, Flank pain, Bladder incontinence, Bowel incontinence, Weight loss, Pain with weight bearing TAD Risk Factors: Reports: None AAA Risk Factors: Reports: None Cauda Equina Risk Factors: Reports: None Epidural Abcess Risk Factors: Reports: None Related Surgical History: Reports: None Focal Tenderness: Yes Paraspinal Muscle Tenderness: No Paraspinal Muscle Spasm: No Scoliosis: No Lordosis: No Kyphosis: No SLR Test: Right Negative, Left Negative Hip Motion Testing Pain: Right Negative, Left Negative Focal Weakness: Present: None Focal Sensory Loss: Present: None Gait: Present: Normal Differential Diagnoses: Strain
--- NOTE | 2018-12-19 15:33 | DI ---
EXAM: PA and lateral views of the chest HISTORY: Chest strain COMPARISON: Chest x-ray 07/16/2018 FINDINGS: The cardiomediastinal silhouette is normal. There is no pneumothorax or pleural effusion. There is no consolidation, nodule or mass. There is a stable calcification in the right lung base. The osseous structures are stable. Surgical clips are overlying the left soft tissues. IMPRESSION: No acute cardiopulmonary process or significant interval change.
--- NOTE | 2018-12-19 15:34 | DI ---
EXAM: Three views of the left shoulder HISTORY: Pain. COMPARISON: Left shoulder x-rays 01/09/2017 FINDINGS: There is no cortical irregularity or displaced fracture of the left shoulder. The glenohum eral joint and acromioclavicular joint is unremarkable. There is no lytic or blastic lesion. The so ft tissues are unremarkable. There are surgical clips in the soft tissues. IMPRESSION: No acute abnormality or displaced fracture of the left shoulder.
== END 2018-12-19 15:33 | disposition home or self-care (01) ==
LOC: ED 13:14
DX: S46.912A Strain of unspecified muscle, fascia and tendon at shoulder and upper arm level, left arm, initial encounter (principal); S16.1XXA Strain of muscle, fascia and tendon at neck level, initial encounter; M54.9 Dorsalgia, unspecified; R11.0 Nausea; M79.602 Pain in left arm; W19.XXXA Unspecified fall, initial encounter; Z82.49 Family history of ischemic heart disease and other diseases of the circulatory system
CPT/HCPCS: 36415; 80053; 84484; 85025; 93005; 93010; 99283

== ENCOUNTER 2019-02-04 12:36 | Outpatient (CLI) ==
--- NOTE | 2019-02-04 13:59 | DI ---
Exam: Chest two-view HISTORY: Cough. Comparison: 12/19/2018. FINDINGS: Two views of the chest demonstrate hyper expanded lungs with no evidence of pneumonia or e rajwinder. The heart is normal in size and configuration. The thoracic aorta is partially calcified. Ca lcified granulomata are noted. The pulmonary vasculature is not congested. The skeletal structures are intact. There are degenerative findings in the spine. Surgical clips are again noted over the a nterior lateral left thorax. IMPRESSION: No acute cardiopulmonary disease. Hyperexpanded lungs consistent with COPD. Atherosclerosis and prior granulomatosis.
== END 2019-02-04 12:37 | disposition home or self-care (01) ==
LOC: RHC-LAB 12:36 → RAD 12:37
PROVIDERS: ATTEND General Practice
DX: R05 Cough (principal); E78.5 Hyperlipidemia, unspecified; E03.9 Hypothyroidism, unspecified; Z79.899 Other long term (current) drug therapy
CPT/HCPCS: 36415; 80053; 80061; 81001; 84443; 85025; 87502; 87651

== ENCOUNTER 2019-04-12 12:06 | Outpatient (CLI) | payer OTHER ==
--- NOTE | 2019-04-12 12:59 | US ---
EXAM: Transvaginal pelvic ultrasound. History: Lower abdominal and pelvic pain. Comparison: CT abdomen pelvis 02/06/2014 Technique: Multiple sonographic images through the pelvis were obtained. Color duplex Doppler was u sed to interrogate vascular flow. Findings: The uterus measures 4.2 cm x 2.6 cm x 3.9 cm. Endometrium measures 0.2 cm in thickness. No fluid in the cul-de-sac. Both ovaries are normal in size. Blood flow is documented within each ovary. No ad nexal masses. Impression: Unremarkable pelvic ultrasound
== END 2019-04-12 12:07 | disposition home or self-care (01) ==
LOC: RAD 12:06
PROVIDERS: ATTEND General Practice
DX: R10.30 Lower abdominal pain, unspecified (principal)

== ENCOUNTER → 2019-11-24 18:21 | Observation (INO) ==
[2019-11-23 16:35] VITALS: BMI 36.5
[2019-11-23 16:56] LABS: HEMATOCRIT 40.5 % (37.0-47.0)
--- NOTE | 2019-11-23 17:42 | DI ---
Examination: Two views of the chest. HISTORY: Chest pain. COMPARISON: 10/20/2019. FINDINGS: Cardiomediastinal silhouette appears normal in size and configuration. Aortic arch athero sclerosis. There is no focal pulmonary infiltrate. Skin clips overlie the left breast. Rounded nod ular opacities again seen in the lung bases likely representing nipple shadows. There is no signific ant pleural fluid. There is a calcified granuloma at the posterior lung base on the right. The osse ous structures without significant abnormalities. IMPRESSION: No acute cardiopulmonary abnormality.
[2019-11-23] MEDS: AMLODIPINE PO SCH (20:45)
[2019-11-23] MEDS: NON-FORMULARY MEDICATION (Lisinopril [Lisinopril] 20 MG) PO SCH (20:46)
--- NOTE | 2019-11-24 08:47 | PCM.CONS ---
CONSULTING PROVIDER: Dr. FAVIOLA MORRISON ATTENDING PROVIDER: [facility] DATE OF SERVICE: 11/24/19 SUBJECTIVE: This 59 year old /WHITE F was hospitalized 11/23/19. The patient is seen in consultation resting comfortably. The last time the patient experienced chest pain was during the admission process and described it as "twinges". She denies any sweating, radiation to arm or neck. She did experience mild shortness of breath. REVIEW OF SYSTEMS: CONSTITUTIONAL: No night sweats. No fatigue, malaise, lethargy. No fever or chills. HEENT: Eyes: No visual changes. No eye pain. No eye discharge. ENT: No runny nose. No epistaxis. No sinus pain. No odynophagia. No congestion. RESPIRATORY: No cough, no congestion. No hemoptysis. No shortness of breath. CARDIOVASCULAR: Positive for chest pain. No angina symptoms. No CHF symptoms. No palpitations. No orthopnea. GASTROINTESTINAL: No abdominal pain. No nausea or vomiting. No diarrhea or constipation. No hematemesis. No hematochezia. GENITOURINARY: No urgency. No frequency. No dysuria. No hematuria. No obstructive symptoms. No discharge. No pain. No significant abnormal bleeding. MUSCULOSKELETAL: No musculoskeletal pain; no joint swelling. NEUROLOGICAL: Awake, alert, oriented to time, place and person. No headache. No neck pain. No syncope. No seizures. No dizziness. PSYCHIATRIC: Not anxious. No depression. No suicidal thoughts. No homicidal thoughts. SKIN: No rash. No lesions. No wounds. ENDOCRINE: No unexplained weight loss. No weight gain. HEMATOLOGIC/LYMPHATIC: No anemia. No purpura. No petechiae. No prolonged or excessive bleeding. No palpable lymph nodes. PHYSICAL EXAMINATION: GENERAL: The patient is awake, alert and oriented, lying/sitting in bed in no distress. VITAL SIGNS: Temperature 97.5 F, Pulse 55, Respiratory Rate 16, BP 139/67, Pulse Ox 97% HEENT: Head normocephalic, atraumatic. Eyes: Extraocular muscles are intact. Pupils are equal, round and reactive to light and accommodation. Ears: No lesions. Nose appeared normal. Throat: No exudate or erythema. NECK: Supple. No JVD, no carotid bruit. No lymphadenopathy or thyromegaly. LUNGS: Diminished breath sounds. Clear to auscultation. Percussion note normal. Chest symmetrical. HEART: S1, S2, no S3. No murmurs. No cyanosis or clubbing. No ascites. Pul ses: Dorsalis pedis and posterior tibial pulses +1 to +2 both sides. ABDOMEN: Soft. Non-tender. Bowel sounds active. No CVA tenderness. No mass felt. EXTREMITIES: No edema. Full range of motion of all extremities, equal. NEUROLOGIC: No focal deficit. Cranial nerves II through XII are grossly intact. No headache, no double vision or headache. SKIN: Warm and dry. Intact. Turgor-normal. LYMPHATIC: No palpable lymph nodes/no lymphedema. MUSCULOSKELETAL: Normal joints with no swelling. Muscle tone is normal. LAB REVIEW: 11/23/19 16:50 11/23/19 16:50 11/24/19 01:59: Total Creatine Kinase < 20.0 L, Troponin I < 0.012 11/23/19 17:15: Urine Color Yellow, Urine Clarity Clear, Urine pH 6.0, Ur Specific [place] 1.025, Urine Protein Negative, Urine Glucose (UA) Negative, Urine Ketones Negative, Urine Blood Negative, Urine Nitrite Negative, Urine Bilirubin Negative, Urine Urobilinogen 0.2, Ur Leukocyte Esterase Negative 11/23/19 17:00: NT-Pro-B Natriuret Pep 505.000 H 11/23/19 16:50: WBC 14.72 H, RBC 4.72, Hgb 13.2, Hct 40.5, MCV 85.8, MCH 28.0, MCHC 32.6, RDW Coeff of Javi 13.4, Plt Count 271, Immature Gran % (Auto) 0.7, Neut % (Auto) 70.6, Lymph % (Auto) 22.0, [place] % (Auto) 5.7, Eos % (Auto) 0.5, Baso % (Auto) 0.5, Immature Gran # (Auto) 0.1, Neut # (Auto) 10.4 H, Lymph # (Auto) 3.2, [place] # (Auto) 0.8, Eos # (Auto) 0.1, Baso # (Auto) 0.1 11/23/19 16:50: Sodium 138.4, Potassium 3.96, Chloride 101.1, Carbon Dioxide 30.6 H, Anion Gap 10.66, BUN 14.8, Creatinine 0.90, Estimated GFR (MDRD) 64.00, BUN/Creatinine Ratio 16.44, Glucose 90.2, Calcium 9.96, Total Bilirubin 0.31, AST 17.7, ALT 9.5, Alkaline Phosphatase 107.2, Total Creatine Kinase 27.3 L, Troponin I < 0.012, Total Protein 7.57, Albumin 3.99, Globulin 3.58, Albumin/Globulin Ratio 1.11 ASSESSMENT: 1. Chest pain. 2. Dyslipidemia. 3. Obesity. 4. Hypertension. 5. Smoker. 6. History of CVA. 7. Multiple risk factors for CAD. RECOMMENDATIONS/PLAN: 1. A1C 2. 2D echocardiogram 3. Dobutamine stress 4. Lipids 5. T4, TSH Plan and coordination of the patient's care discussed in the presence of Electrician [employer] and Nurse. CONDITION: Stable SCRIBED BY: AMRIT MEJIA Registered Nurse Cardiac Telemetry scribed while in presence of service performed by LETICIA LIM/FITO/DR. FAVIOLA MORRISON on 11/24/19 ([id number])
[2019-11-24] MEDS: AMLODIPINE PO SCH (09:41)
[2019-11-24] MEDS: NON-FORMULARY MEDICATION (Lisinopril [Lisinopril] 20 MG) PO SCH (09:43)
--- NOTE | 2019-11-24 14:19 | ECHO2D ---
Date of Exam: 11/24/19 Ordering Physician: DR. MANNY SRIVASTAVA Room #: [id number] Reason for Echo: CHEST PAIN, HTN, HYPERLIPIDEMIA, HX CVA M-Mode Normal Adult Results LV Dimensions Normal Adult Results AoV Opening excursions >1.6 >1.6 LVEDD-base- 3.5-5.8 4.3 Ao root dimensions 2.0-3.7 3.7 LVESD-base- 3.1-4.6 L. Atrium dimensions 1.9-3.8 2.9 Post. Wall thickness 0.8-1.1 1.1 IV septum (thickness) 0.7-1.2 1.2 Post. Wall excursion 0.72-1.3 NORMAL Septal motion NORMAL Systolic motion R. Ventricular cavity 1.5-2.0 NORMAL LVEF 60% 54% Paradoxical septal wall motion NORMAL 2-D : 2-D M Mode Echocardiogram was performed using apical four chamber and left parasternal long and short axis views. Mitral, tricuspid and aortic valves appear to be normal. Contractility of the left ventricle seems to be normal, so is the cavity size. Left atrial cavity size and aortic root appear to be normal. There is no pericardial effusion. There is no thrombus noted in the left ventricle or left atrial cavity. No mitral valve prolapse noted. M-MODE: MV: NORMAL AV: NORMAL TV: NORMAL PV: CHAMBER SIZE: NORMAL WALL MOTION: NORMAL PERICARDIUM: NORMAL INTERPRETATION: 1. BORDERLINE LEFT VENTRICULAR HYPERTROPHY 2. NORMAL VALVES 3. NORMAL LEFT VENTRICULAR CONTRACTILITY MTDD
--- NOTE | 2019-11-24 14:22 | ECHOSTRESS ---
Date of Exam: 11/24/19 Ordering Physician: DR. MANNY SRIVASTAVA Reason for Echo: CHEST PAIN, HTN, HYPERLIPIDEMIA, HX CVA, DOBUTAMINE STRESS TEST--NO ISCHEMIA M-Mode Normal Adult Results LV Dimensions Normal Adult Results AoV Opening excursions >1.6 LVEDD-base- 3.5-5.8 Ao root dimensions 2.0-3.7 LVESD-base- 3.1-4.6 L. Atrium dimensions 1.9-3.8 Post. Wall thickness 0.8-1.1 IV septum (thickness) 0.7-1.2 Post. Wall excursion 0.72-1.3 Septal motion Systolic motion R. Ventricular cavity 1.5-2.0 LVEF 60% Paradoxical septal wall motion 2-D: NORMAL LEFT VENTRICULAR CONTRACTILITY--RESTING AND WITH DOBUTAMINE INFUSION M-MODE: MV: AV: TV: PV: CHAMBER SIZE: WALL MOTION: NORMAL LEFT VENTRICULAR CONTRACTILITY--RESTING AND WITH DOBUTAMINE INFUSION PERICARDIUM: INTERPRETATION: 1. NORMAL LEFT VENTRICULAR CONTRACTILITY--RESTING AND WITH DOBUTAMINE INFUSION MTDD
--- NOTE | 2019-11-24 14:34 | DOBSTECHO ---
Date of Test: 11/24/19 Ordering Physician: DR. MANNY SRIVASTAVA Smoking History: 25 PK/YRS Reason for Examination: CHEST PAIN, HTN, HYPERLIPIDEMIA Current Medications: HCTZ, TRAMADOL, PRAVACHOL, LISINOPRIL, LEVOTHYROXINE, FEMARA, EFFEXOR XR, KEPPRA Height: 64" Weight: 212 LBS Target Heart Rate: 136/161 S-T Segment Stage Time HR BPM BP MMHG Rhythm +/- Elevation Depression Symptoms Control Sitting 55 128/64 SR X NONE Dobutamine 250mg/D5W 5cmg/KG/mn 10cmg/KG/mn 3" 62 132/70 SR X NONE 15cmg/KG/mn 2" 77 SR X NONE 20cmg/KG/mn 2" 99 140/62 SR X NONE 25cmg/KG/mn 2" 110 SR X NONE 30cmg/KG/mn 2" 120 132/60 SR X NONE 35cmg/KG/mn :51 131 126/60 SR X NONE 40cmg/KG/mn 5" MIN POST INFUSION 96 128/68 SR X NONE 10" MIN POST INFUSION 72 SR X NONE DURATION OF INFUSION 11:51 MAXIMUM HEART RATE REACHED 131 BPM 99% OXYGEN SATURATION WITH DOBUTAMINE INFUSION Interpretation: 1. NO EVIDENCE OF ISCHEMIA BY ST-T WAVE 2. NO CHEST PAIN OR DISCOMFORT 3. NORMAL LEFT VENTRICULAR CONTRACTILITY--RESTING AND WITH DOBUTAMINE INFUSION MTDD
[2019-11-24 14:53] VITALS: BP 124/76; TEMP 98.3
--- NOTE | 2019-11-24 14:54 | CONS ---
DATE OF CONSULTATION: 11/24/19 REASON FOR CONSULTATION: Center of sternum having dull pain/non exertional, steady with no radiation. HISTORY OF PRESENT ILLNESS: 59-year-old female, a direct admit, with chest pain, 11/23/2019, none after admission. No shortness of breath/no sweating/no palpitations, duration 3 days. REVIEW OF SYSTEMS: CONSTITUTIONAL: No night sweats. No fatigue, malaise, lethargy. No fever or chills. HEENT: Eyes: No visual changes. No eye pain. No eye discharge. ENT: No sinus drainage. No epistaxis. No sinus pain. No sore throat. No odynophagia. No ear pain. No congestion. RESPIRATORY: Nonproductive cough. No hemoptysis. No shortness of breath. CARDIOVASCULAR: No angina symptoms. No CHF symptoms. No atypical chest pain for CAD. No palpitations. No orthopnea. GASTROINTESTINAL: No abdominal pain. No nausea or vomiting. No diarrhea or constipation. No hematemesis. No hematochezia. GENITOURINARY: No urgency. No frequency. No dysuria. No hematuria. No obstructive symptoms. No discharge. No pain. No significant abnormal bleeding. MUSCULOSKELETAL: No musculoskeletal pain. No joint swelling. NEUROLOGICAL: No headache. No neck pain. No syncope. No seizures. No dizziness. PSYCHIATRIC: Anxious. Depression- on Effexor. No suicidal thoughts. No homicidal thoughts. SKIN: Dry. No rash. No lesions. No wounds. ENDOCRINE: No unexplained weight loss. No weight gain. HEMATOLOGIC/LYMPHATIC: No anemia. No purpura. No petechiae. No prolonged or excessive bleeding. No palpable lymph nodes. MEDICATIONS: Tramadol Promethazine Pravachol Lisinopril Levothyroxine Letrozole (Femora) HCTZ Keppra Vitamin D Coenzyme Q10 ASA Amlodipine Effexor ALLERGIES: CODEINE, MORPHINE, IODINATED CONTRAST MEDIA (CHLORAPREP) PAST MEDICAL/SURGICAL HISTORY: Hyperlipidemia Hypothyroidism Chest pain Frequent falls Weakness, right lower extremity Chronic arthritis History of CVA Opioid use with withdrawal Hypertensive urgency Decreased range of motion of left shoulder Anxiety Carcinoma of left breast Low back pain Tuberculosis Transient ischemia ER visit 10/20 Hypertension, gave Procardia (BP199/111) SOCIAL/PERSONAL/FAMILY HISTORY: Current everyday smoker (5 cigarettes daily), occasional alcohol use. . Family History: Mother and father both had [place]'s. Father had open heart surgery. PHYSICAL EXAMINATION: GENERAL: The patient is awake, alert, oriented times four. VITAL SIGNS: Pulse 55, BP 139/67, temperature 97.5, 02 sat 97% on room air, Weight 212 lbs, 11.937 ozs HEENT: Head normocephalic, atraumatic. Eyes: Extraocular muscles are intact. Pupils are equal, round and reactive to light and accommodation. Ears: No lesions. Nose appeared normal. Throat: No exudate or erythema. NECK: Supple. No JVD, no carotid bruit. No lymphadenopathy or thyromegaly. LUNGS: Clear to auscultation. Percussion note normal. Chest symmetrical. HEART: S1, S2, no S3. No murmurs. No cyanosis or clubbing. No ascites. Pulses: Dorsalis pedis and posterior tibial pulses +2 bilaterally. ABDOMEN: Soft. Nontender. Bowel sounds active. No CVA tenderness. No mass felt. EXTREMITIES: No edema. Full range of motion of all extremities, equal. NEUROLOGIC: No focal deficit. Cranial nerves II through XII are grossly intact. No headache, no double vision or headache. SKIN: Not dry. Intact. Turgor - normal. LYMPHATIC: No palpable lymph nodes/no lymphedema. MUSCULOSKELETAL: Normal joints with no swelling. Muscle tone is normal. LABS/X-RAYS/OTHER RELEVANT DATA: Chest x-ray 11/23/19: No acute cardiopulmonary abnormality. No stress test. No echo. WBC 14.72, hemoglobin 13.2, glucose 272, hematocrit 40.5. NA 135.4, c02 101.1, BUN 14.8, glucose 90.2, K+ 3.96, c02 30.6, creatinine 0.90. UA within normal limits. BNP 505.000. Troponin less than 0.012 (11-23-19), less than 0.012 (11-24-19 0159). TCK 27.3 (11-23 @ 1650). Less than 20.0 (11-24-19 @ 0159). ASSESSMENT: 1. CHEST PAIN, ATYPICAL 2. CAD RISK FACTORS: BMI GREATER THAN 30, SEDENTARY LIFESTYLE, DYSLIPIDEMIA, HYPERTENSION, FAMILY HISTORY OF HEART DISEASE. RECOMMENDATIONS: 1. Echocardiogram to evaluate LV function. 2. Dobutamine stress echo to rule out ischemia. 3. Non HDL goal 100 discussed. 4. 01/25 lipid profile ok. 5. Weight loss diet discussed. Walk after knee problem taken care of, greater than one mile a day. Thanks for referral, will follow. ANETA
[~2019-11-24 18:21] MED LIST: ASPIRIN 81 MG PO SCH; ASPIRIN EC PO SCH; ATROPINE SULFATE PFS IVP PRN; DOBUTAMINE 500 MG-D5W 250 ML 500 MG/250 ML BAG IV ONE; DOBUTAMINE 500 MG-D5W 250 ML 500 MG/250 ML BAG IV SCH; ERGOCALCIFEROL 50000 UNIT PO SCH; KEPPRA 500 MG PO SCH; LETROZOLE 2.5 MG PO SCH; LEVOTHYROXINE 50 MCG PO SCH; LOVENOX SUBCUT SCH; NITROSTAT SL PRN; NON-FORMULARY MEDICATION (Coenzyme Q10 100 MG) PO SCH; NON-FORMULARY MEDICATION (Hydrochlorothiazide [Hydrochlorothiazide] 12.5 MG) PO SCH; NON-FORMULARY MEDICATION (Hydrochlorothiazide [Hydrochlorothiazide] 25 MG) PO SCH; NON-FORMULARY MEDICATION (Pravastatin [Pravachol] 40 MG) PO SCH; NON-FORMULARY MEDICATION (Zinc 50 MG) PO SCH; PROMETHAZINE 12.5 MG PO PRN; TRAMADOL 50 MG PO PRN; TYLENOL PO PRN; VENLAFAXINE 75 MG PO SCH; VISTARIL INJ IM PRN
--- NOTE | 2019-11-28 09:31 | HP ---
DATE OF SERVICE: 11/23/19 CHIEF COMPLAINT: Chest discomfort. HISTORY OF PRESENT ILLNESS: The patient was actually here at the office on 11/23/19 for followup of her blood pressure. She had been having some issues with blood pressure up and down and blood pressure medicine had been adjusted. She reported that she woke up yesterday morning with headache back of her head. This is not unusual for her; however, she did rate the pain at a level of 7 on a scale of 1 to 10. She did report that on the day of admission her headache was better but still there. Her blood pressure was 114/67 on the day of admission. Today, her chest pain started off and on all morning. She reported "kind of like a twinge". It was located in the middle of her chest, unsure if it was worse with activity. She did feel a little bit short of breath this morning. She denied any current pain but she does report that it is coming and going. She did report that she was under quite a bit of stress. Her son recently was going through a divorce and the divorce was finalized today which is November 23, 2019. She has been very upset about it because he has been upset about it. She is unsure how to describe the pain except for it feels like it is "twinging". She denied any nausea, denied any pain or radiation down her arms. She denied any other concurrent symptoms with the chest pain. She does report a strong family history of heart disease. Mother at 54 with an IN and Dad has a history of coronary artery bypass grafting and an IN. The patient does have a personal history of a CVA and she does have residual effects with that and she is currently going through therapy status post CVA. 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 PAST SURGICAL HISTORY: Tubal ligation, lumpectomy of the breast, status post cholecystectomy and tonsillectomy. FAMILY HISTORY: Includes mother IN, father IN with open heart surgery. SOCIAL HISTORY: She is a current every day smoker. She tells me she is trying to cut down. Denies any substance abuse. No reports of any alcohol use. MEDICATIONS: (CURRENT HOME) Amlodipine 7.5 mg every day Aspirin 81 mg daily Coenzyme Q10 100 mg daily Vitamin D2 50,000 units daily Hydrochlorothiazide 12.5 mg twice a day Keppra 500 mg daily Letrozole 2.5 mg daily Synthroid 50 mcg every day Lisinopril 20 mg twice a day Pravasatin 40 mg at bedtime Promethazine 12.5 mg every 8 hours as needed Tramadol 50 mg twice a day as needed Effexor 37.5 mg at bedtime Zinc 50 mg every day ALLERGIES: CODEINE, MORPHINE, IODINATED CONTRAST MEDIA (CHLORAPREP) REVIEW OF SYSTEMS: CONSTITUTIONAL: She denies any fever, chills, nightsweats or weight changes. HEENT: Denies any headache, eye pain, blurred vision, nasal drainage or sore throat. Denies any cold symptoms. CARDIOVASCULAR: She does complain of intermittent chest pain that comes and goes. It is a twinging type pain. Denies any pain down the arm. Denies any nausea or associated symptoms. Denies any irregular rhythm. Denies any palpitations. Denies any orthopnea or peripheral edema. RESPIRATORY: Lungs - denies any shortness of breath. Denies any cough. Denies any congestion or history of lung disease. She is a chronic smoker. GASTROINTESTINAL: Denies any abdominal pain, nausea, vomiting, diarrhea or constipation. Denies any blood in stool. Denies changes in stool consistency. GENITOURINARY: Denies any dysuria, hematuria, nocturia or urinary incontinence. MUSCULOSKELETAL: Does complain of some arthritic pain. Denies any joint redness, swelling or any history of problems. NEUROLOGIC: She does have issues with occasional dizziness and balance issues. She does have some issues with falls as well after her CVA. She has started balance training and therapy for this. Her neurologist is Dr. Oden in [place], [place]. PSYCHIATRIC: No reports of anxiety, depression or mood changes. ENDOCRINE: She does not have a history of diabetes mellitus. She does have a history of hypothyroidism. Denies any increased thirst, urination, heat or cold intolerance. INTEGUMENTARY: No reports of unusual rashes or lesions. PHYSICAL EXAMINATION: GENERAL: She is alert and oriented. She is pleasant. She answers all questions appropriately. VITAL SIGNS: Today she is 5'4", 210 lbs, BP 114/67, respirations 16, pulse 76, temperature 96.8, pulse ox 97% on room air. HEENT: Head normocephalic, atraumatic. Pupils equal/reactive to light. Conjunctivae clear. Mucous membranes are moist. NECK: Supple. No lymphadenopathy or thyromegaly. No carotid bruits auscultated. CARDIOVASCULAR: S1, S2 regular rate and rhythm. Peripheral pulses palpable. LUNGS: Clear, diminished. No acute distress. ABDOMEN: Soft. Bowel sounds are positive. NEUROLOGIC: Cranial nerves 2-12 intact. As noted before, she is having some balance issues. She is doing gait training with physical therapy. SKIN: Warm and dry. No overt rashes or lesions. LABS AND DIAGNOSTIC TESTING: There are no recent labs and diagnostic testing except for on 10/20/19, she did have a CBC and she was not anemic. Her chemistry panel was done on 10/20/19, was unremarkable. UA was negative. ASSESSMENT: 1. CHEST PAIN, RULE OUT ACUTE ISCHEMIA. 2. HYPERTENSION. 3. HISTORY OF CVA. 4. WEAKNESS IN THE RIGHT LOWER EXTREMITY STATUS POST CVA. 5. HYPOTHYROIDISM. 6. HYPERLIPIDEMIA. PLAN: 1. Admit the patient. 2. We will check STAT cardiac markers, CPK-MB, troponin now, every eight hours times three. 3. CBC, CMP, NT-pro-BNP, chest x-ray. 4. Will place the patient on telemetry. 5. Consultation with Dr. Aaron regarding chest pain. 6. Check a fasting insulin. TIME SPENT: GREATER THAN 65 MINUTES MTDD
--- NOTE | 2019-11-28 09:50 | DS ---
DATE OF SERVICE: 11/24/19 FINAL DIAGNOSES: 1. NONCARDIAC CHEST PAIN 2. HYPERTENSION 3. HISTORY OF CVA 4. HYPOTHYROIDISM 5. HYPERLIPIDEMIA BRIEF HISTORY OF PRESENT ILLNESS/HOSPITAL COURSE: The patient had a consultation with Dr. Aaron. She did undergo a stress test, an echocardiogram and cardiac markers. Per Dr. Shah the stress test was negative for ischemia. The echo showed 54% left ventricular ejection fraction. The cardiac enzymes were negative. PERTINENT LABS AND DIAGNOSTIC TESTING: As discussed previously. Labs: UA was negative. White count on admisison: She did have an elevated white count of 14.72. She was not anemic. Chem panel was normal. NT-pro-BNP was 505. DISCHARGE MEDICATIONS: There was a change in discharge medicine. She will decrease her Effexor to 37.5 mg daily. DISCHARGE DIET: Diet as tolerated with recommendations for heart healthy diet. DISCHARGE ACTIVITY: Gradually resume normal activity level. DISCHARGE INSTRUCTIONS: She is to followup in two weeks with Dr. Shah with plans for repeat labs at that time. TIME SPENT: GREATER THAN 30 MINUTES MTDD
--- NOTE | 2019-11-28 10:40 | CONS ---
CONSULT FOLLOWUP DATE OF SERVICE: 11/24/2019 SUBJECTIVE: The patient was seen and examined this morning with Nurse Practitioner. The patient's chest pain is atypical more like a dull ache unrelated to exertion. The patient has several risk factors for coronary artery disease like dyslipidemia, hypertension, over weight and sedentary lifestyle. PHYSICAL EXAMINATION: HEENT: Head normocephalic, atraumatic. Eyes: Extraocular muscles are intact. Pupils are equal, round and reactive to light and accommodation. Ears: No lesions. Nose appeared normal. Throat: No exudate or erythema. NECK: Supple. No JVD, no carotid bruit. No lymphadenopathy or thyromegaly. LUNGS: Clear to auscultation. Percussion note normal. Chest symmetrical. HEART: S1, S2, no S3. No murmurs. No cyanosis or clubbing. No ascites. Pulses: Dorsalis pedis and posterior tibial pulses +2 bilaterally. ABDOMEN: Soft. Nontender. Bowel sounds active. No CVA tenderness. No mass felt. EXTREMITIES: No edema. Full range of motion of all extremities, equal. NEUROLOGIC: No focal deficit. Cranial nerves II through XII are grossly intact. No headache, no double vision or headache. SKIN: Not dry. Intact. Turgor - normal. LYMPHATIC: No palpable lymph nodes/no lymphedema. MUSCULOSKELETAL: Normal joints with no swelling. Muscle tone is normal. LABS: EKG sinus rhythm. No acute changes. The patient has an echo done which showed borderline LVH otherwise normal. The patient's Dobutamine Stress Echo was negative for ischemia. ASSESSMENT: 1. Chest pain, seems to be noncardiac by clinical history by negative cardiac markers, by negative EKGs and by negative Dobutamine stress echo CARDIOVASCULAR STATUS: Stable. [facility]
== END | disposition home or self-care (01) ==
LOC: MEDSURG B
PROVIDERS: ADMIT General Practice; ATTEND General Practice
DX: I10 Essential (primary) hypertension; R53.1 Weakness; E03.9 Hypothyroidism, unspecified; E78.5 Hyperlipidemia, unspecified; Z86.73 Personal history of transient ischemic attack (TIA), and cerebral infarction without residual deficits; R07.9 Chest pain, unspecified